=== PATIENT | female | born 1980 | race Caucasian/White ===

== ENCOUNTER 2017-11-01 16:34 | Emergency (ER) | payer BC, OTHER ==
[~2017-11-01] VITALS: Ht 162.6 cm; Wt 56.2 kg
[~2017-11-01 16:34] MED LIST: ESTR2TAB5 PO; LEUPROLIDE; THYROID; [UNRECOGNIZED DRUG - OTHER] IV
[2017-11-01] MEDS ORDERED: ENSKYCE (16:44)
[2017-11-01 17:31] LABS: BASOPHILS # (AUTO) 0.1 K/uL (0.0-8.0); EOSINOPHILS % (AUTO) 0.6 % (0.0-7.0); HEMATOCRIT 40.5 % (31.2-41.9); LYMPHOCYTES # (AUTO) 1.9 K/uL (20.0-40.0); MEAN CORPUSCULAR HEMOGLOBIN 32.8 uug (24.7-32.8); MEAN CORPUSCULAR HGB CONC 35 g/dL (32.3-35.6); MEAN CORPUSCULAR VOLUME 95.3 fL (75.5-95.3); MONOCYTES # (AUTO) 0.4 K/uL (2.0-10.0); MONOCYTES % (AUTO) 7.2 % (0.0-11.0); NEUTROPHILS # (AUTO) 3.1 K/uL (1.8-8.9); NEUTROPHILS % (AUTO) 56.2 % (38.5-71.5); PLATELET COUNT (AUTO) 255 K/uL (179-408); RED BLOOD CELL COUNT(AUTO) 4.25 MIL/uL (3.63-4.92); WHITE BLOOD COUNT (AUTO) 5.5 K/uL (3.8-11.8)
[2017-11-01 17:31] LABS: *BILIRUBIN,URIN NEGATIVE (NEGATIVE); *BLOOD, URINE NEGATIVE (NEGATIVE); *CLARITY,URINE CLEAR (CLEAR); *COLOR,URINE LIGHT YELLOW (YELLOW); *KETONES,URINE NEGATIVE (NEGATIVE); *PROTEIN,URINE NEGATIVE (NEGATIVE); *UROBILINOGEN,URINE 0.2 E.U./dl (NORMAL); LEUKOCYTE ESTERASE ,URINE NEGATIVE (NEGATIVE); NITRITE, URINE NEGATIVE (NEGATIVE); PH,URINE 6.5 (5.0-8.0); UGLUCOSE NEGATIVE (NEGATIVE)
[2017-11-01 17:33] LABS: CREATININE 0.9 mg/dL (0.6-1.3); POTASSIUM 3.9 mmol/L (3.5-5.1)
[2017-11-01 17:38] LABS: BACTERIA,URINE FEW /HPF (NONE SEEN); WBC,URINE 0-3 /HPF (0-3)
[2017-11-01 17:39] LABS: BILIRUBIN,DIRECT 0.1 mg/dL (0.0-0.2); BILIRUBIN,TOTAL 0.3 mg/dL (0.2-1.0)
[2017-11-01 17:39] LABS: SQUAMOUS EPITHELIAL CELL,UR FEW /HPF (NONE SEEN)
--- NOTE | 2017-11-01 19:04 | NUR ---
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
--- NOTE | 2017-11-01 19:45 | NUR ---
Patient discharged to home in stable conditon. Written and verbal after care instructions given. Patient verbalizes understanding of instructions. Patient ambulated out of ER with steady gait, no acute signs of distress, VSS, all belongings taken.
[2017-11-01 19:52] VITALS: BP 138/93
== END 2017-11-01 19:45 | disposition home or self-care (01) ==
LOC: ER 16:34
DX: R10.30 Lower abdominal pain, unspecified (principal); D25.9 Leiomyoma of uterus, unspecified; J45.909 Unspecified asthma, uncomplicated; Z88.0 Allergy status to penicillin; Z88.1 Allergy status to other antibiotic agents; Z91.048 Other nonmedicinal substance allergy status; Z79.899 Other long term (current) drug therapy
CPT/HCPCS: 36415; 76856; 83690; 84703; 85025; A4663

== ENCOUNTER 2018-01-10 15:54 | Emergency (ER) | payer OTHER ==
[~2018-01-10] VITALS: Ht 162.6 cm; Wt 55.8 kg
[~2018-01-10 15:54] MED LIST changes: +ENSKYCE; -ESTR2TAB5 PO; -LEUPROLIDE; -THYROID
--- NOTE | 2018-01-10 16:13 | NUR ---
PT IS IN ROOM #2A. DR SALAS EVALUATED THE PT.
[2018-01-10] MEDS ORDERED: MORPHINE SULFATE 2 MG/1 ML DISP.SYRIN IV ONE (16:21)
[2018-01-10] MEDS ORDERED: diphenhydrAMINE 50 MG/1 ML VIAL IV ONE (16:21)
[2018-01-10] MEDS ORDERED: IV NS 1000 ML 1,000 ML IV ONE (16:30)
[2018-01-10] MEDS ORDERED: ONDANSETRON IV *ER 4 MG/2 ML VIAL IV ONE (16:30)
[2018-01-10] MEDS ORDERED: ONDANSETRON 4 MG/2 ML VIAL ONE (16:42)
[2018-01-10] MEDS ORDERED: MORPHINE SULFATE 4 MG/1 ML DISP.SYRIN ONE (16:42)
[2018-01-10] MEDS ORDERED: diphenhydrAMINE 50 MG/1 ML VIAL ONE (16:43)
[2018-01-10 16:58] LABS: *URINE HCG, QUAL NEGATIVE (NEGATIVE)
--- NOTE | 2018-01-10 18:05 | NUR ---
PT WAS D/C TO HOME. D/C INSTRUCTIONS GIVEN TO THE PT.
[2018-01-10 18:07] VITALS: BP 125/73
== END 2018-01-10 18:08 | disposition home or self-care (01) ==
LOC: ER 15:55
DX: G43.909 Migraine, unspecified, not intractable, without status migrainosus (principal); J45.909 Unspecified asthma, uncomplicated; Z88.0 Allergy status to penicillin; Z88.1 Allergy status to other antibiotic agents; Z91.09 Other allergy status, other than to drugs and biological substances; Z79.899 Other long term (current) drug therapy
CPT/HCPCS: 84703; A4663; J1200; J2270; J2405

== ENCOUNTER 2019-08-25 16:28 | Emergency (ER) | payer BC, OTHER ==
[~2019-08-25] VITALS: Ht 162.6 cm; Wt 56.7 kg
--- NOTE | 2019-08-25 16:43 | NUR ---
PT IS IN ROOM #2B. DR BILLINGSLEY EVALUATED THE PT.
[2019-08-25] MEDS ORDERED: IV NORMAL SALINE 1000 ML BAG IV ONE (17:00)
[2019-08-25] MEDS ORDERED: diphenhydrAMINE 50 MG/1 ML VIAL IV ONE (17:00)
[2019-08-25] MEDS ORDERED: PROCHLORPERAZINE EDISYLATE 10 MG/2 ML VIAL IV ONE (17:00)
[2019-08-25] MEDS ORDERED: KETOROLAC TROMETHAMINE 30 MG INJ IVP ONE (17:00)
[2019-08-25] MEDS ORDERED: diphenhydrAMINE 50 MG/1 ML VIAL ONE (17:16)
[2019-08-25] MEDS ORDERED: PROCHLORPERAZINE EDISYLATE 10 MG/2 ML VIAL ONE (17:16)
[2019-08-25] MEDS ORDERED: KETOROLAC TROMETHAMINE 30 MG INJ ONE (17:17)
--- NOTE | 2019-08-25 17:57 | NUR ---
PT WAS D/C'D TO HOME. D/C INSTRUCTIONS GIVEN TO THE PT BY DR BILLINGSLEY. NO S/S OF DISTRESS AT THIS TIME.
[2019-08-25 17:59] VITALS: BP 126/72
== END 2019-08-25 18:00 | disposition home or self-care (01) ==
LOC: ER 16:31
DX: G43.909 Migraine, unspecified, not intractable, without status migrainosus (principal); J45.909 Unspecified asthma, uncomplicated; Z88.0 Allergy status to penicillin; Z88.1 Allergy status to other antibiotic agents
CPT/HCPCS: 96374; 96375; 99284; J0780; J1200; J1885; A4663; J7030